=== PATIENT | male | born 1995 | race Caucasian/White ===

== ENCOUNTER → 2016-09-29 | Outpatient (CLI) | payer OTHER ==
[~2016-09-29] MED LIST: ACET-1256 PO; CHOL100010 PO; CHOLTAB9 PO; GUAN2TAB6 PO; HALO1TAB PO; HALO2TAB PO; LURA1TAB2 PO; MELA1CAP9 PO; OXCA600T2 PO; PYRI100T4 PO; VITB2100 PO
[2016-09-29 11:00] LABS: THYROID STIMULATING HORMONE 15.4 uIu/ml (0.300-4.500)
== END | disposition home or self-care (01) ==
LOC: C.LAB1850 09:21
PROVIDERS: ATTEND Internal Medicine Endocrinology, Diabetes & Metabolism
DX: E06.3 Autoimmune thyroiditis (principal)

== ENCOUNTER → 2017-01-09 | Outpatient (CLI) | payer OTHER ==
[2017-01-09 14:06] LABS: CHOLESTEROL/HDL RATIO 3.1
[2017-01-09 14:19] LABS: THYROID STIMULATING HORMONE 0.805 uIu/ml (0.300-4.500)
== END | disposition home or self-care (01) ==
LOC: C.LABBC 09:52
PROVIDERS: ATTEND Psychiatry & Neurology Child & Adolescent Psychiatry
DX: F31.13 Bipolar disorder, current episode manic without psychotic features, severe (principal); Z79.899 Other long term (current) drug therapy

== ENCOUNTER 2017-01-31 18:25 | Emergency (ER) | payer OTHER ==
[~2017-01-31] VITALS: Ht 177.8 cm; Wt 84.1 kg
[~2017-01-31 18:25] MED LIST changes: -CHOLTAB9 PO
[2017-01-31 18:27] VITALS: BP 158/99; PULSE 96; TEMP 37.1; O2SAT 98; Ht 177.8 cm; Wt 84.1 kg
[2017-01-31] MEDS ORDERED: CHOLTAB9 PO (18:37)
--- NOTE | 2017-01-31 19:08 | DIAGNOSTIC IMAGING REPORT ---
LEFT TIBIA/FIBULA 2 VIEWS ROUTINE CLINICAL HISTORY: 21 years-old Male presenting with L lower leg injury. TECHNIQUE: Frontal and lateral views of the left lower leg were obtained. COMPARISON: None. FINDINGS: Knee and ankle joints grossly congruent. No acute fracture or malalignment. Soft tissues grossly normal. IMPRESSION: No acute osseous injury of the left lower leg. Electronically signed by: Vladimir Bell M.D. 01/31/2017 7:07 PM Dictated Date/Time: 01/31/2017 7:06 PM
--- NOTE | 2017-02-01 01:15 | EMERGENCY ROOM VISIT NOTE ---
ED Visit Note First contact with patient: 18:30 Chief Complaint: Left leg laceration. History of Present Illness: Mr. Olivares is a 21-year-old white male who ambulates into the ED complaining of a soft tissue injury to the left lower leg. Patient reports approximate 30 minutes ago he was at work. He reports he was setting up a stage and the stage flipped over. He reports during this process the wheel on the bottom of the stage struck his left lower leg causing a soft tissue injury. Associated with his injury patient reports she has a burning sensation in the area of his soft tissue abrasion. He rates his discomfort 7/10. The pain is nonradiating. The pain worsens with palpation and ambulation. He has not identified any alleviating factors related to the pain. He has not taken any medications for pain prior to arrival at the hospital. He denies any associated falls, hip pain, thigh pain, knee pain, ankle pain, foot pain, left lower leg weakness/numbness/tingling. Review of Systems: As noted above in history of present illness. 5 body systems were reviewed and found to be negative as noted above. Past Medical History: Bipolar disorder, hypertension, bilateral myringotomy. Current Medications: Medications Dose Route/Sig Max Daily Dose Days Date Category D3-1000 (Cholecalciferol) 1,000 Unit Tab 1,000 Inter.unit PO DAILY 01/31/17 Reported Melatonin 10 Mg Cap 10 Mg PO HS 07/01/16 Reported Latuda (Lurasidone Hcl) 120 Mg Tab 120 Mg PO QPM 07/01/16 Reported Haloperidol 1 Mg Tab 1 Mg PO TID PRN 07/01/16 Reported Haloperidol 2 Mg Tab 2 Mg PO BID 07/01/16 Reported Vitamin B-2 (Riboflavin) 100 Mg Tab 100 Mg PO BID 02/24/16 Reported Vitamin B6 (Pyridoxine HCl) 100 Mg Tab 100 Mg PO DAILY 02/24/16 Reported Tenex (Guanfacine Hcl) 2 Mg Tab 2 Mg PO BID 02/24/16 Reported Trileptal (Oxcarbazepine) 600 Mg Tab 1,200 Mg PO BID 08/25/08 Reported Allergies to Medications: Buspirone, lamotrigine, valproic acid and other related antidepressants. Social History: Patient is currently employed; he feels safe in his home environment; he denies tobacco use. Tetanus Immunization Status: Patient reports up-to-date. Physical Examination: Vital Signs: Date Time Temp Pulse Resp B/P (MAP) Pulse Ox O2 Delivery O2 Flow Rate FiO2 01/31/17 18:27 37.1 96 18 158/99 98 Room Air GENERAL: 21-year-old male in mild distress due to pain, nontoxic-appearing, afebrile and hemodynamically stable. NEUROLOGICAL: Awake, alert and oriented to person, place and time. Answering questions appropriately and following commands. Limbed gait. SKIN: Warm, dry and pink. Left Lower Leg: Over the anterior leg and more specific over the tibial spine patient has an approximate 20-22 cm superficial skin abrasion with minimal bleeding. LEFT LOWER EXTREMITY: No gross bony deformity. No tenderness in the hip, knee, ankle or foot. Moderate tenderness over the spine of the tibia with his associated soft tissue injury. I do not appreciate any bony deformity or crepitus. No tenderness over the fibula. Full range of motion in flexion and extension of the knee and plantar flexion and dorsiflexion of the ankle. Throughout the foot the skin was warm and pink and capillary refill is brisk. He was able to distinguish light sensations through all dermatomes. ED Course: Patient is assessed as noted above. Patient's medication list was reviewed. Patient was offered pain medications and refused. Left Lower Leg X-Rays: Were read by myself and the radiologist showing no acute fractures or dislocations. Patient's wound was cleansed with Betadine and sterile water. After cleaning the wound was covered with antibiotic ointment and a sterile dressing. Patient was offered nonweight bearing crutches and refused. Patient was educated about today's findings and instructed on his treatment plan ; he verbalized understanding and agreement with this plan. Clinical Impression: Left lower leg abrasion. Work related injury. Disposition: Patient discharged home in stable condition; prior to departure he was reassessed and subjectively reported he was feeling better and rated his discomfort 3/10. Plan: Comfort measures, wound care , and signs of infection were discussed with the patient. Patient was encouraged to follow-up with Workmen's Compensation or return to the ED for signs of infection, uncontrolled pain or any new/concerning symptoms.
== END 2017-01-31 19:24 | disposition home or self-care (01) ==
LOC: C.EDB 18:26 → C.EDD 19:24
DX: S80.812A Abrasion, left lower leg, initial encounter (principal); W22.8XXA Striking against or struck by other objects, initial encounter; Y93.89 Activity, other specified; Y99.0 Civilian activity done for income or pay; I10 Essential (primary) hypertension; F31.9 Bipolar disorder, unspecified; Z98.890 Other specified postprocedural states; Z79.899 Other long term (current) drug therapy

== ENCOUNTER → 2017-03-09 | Outpatient (CLI) | payer OTHER ==
[~2017-03-09] MED LIST changes: -ACET-1256 PO; -CHOL100010 PO; +CHOLTAB9 PO
[2017-03-09 18:25] LABS: THYROID STIMULATING HORMONE 0.171 uIu/ml (0.300-4.500)
== END | disposition home or self-care (01) ==
LOC: C.LAB1850 16:01
PROVIDERS: ATTEND Physician Assistant
DX: E03.9 Hypothyroidism, unspecified (principal)

== ENCOUNTER → 2017-05-26 | Outpatient (CLI) | payer OTHER ==
[2017-05-26 15:12] LABS: THYROID STIMULATING HORMONE 3.79 uIu/ml (0.300-4.500)
== END | disposition home or self-care (01) ==
LOC: C.LAB 12:32
PROVIDERS: ATTEND Physician Assistant
DX: E03.9 Hypothyroidism, unspecified (principal)